=== PATIENT | male | born 1995 | race Caucasian/White ===

== ENCOUNTER 2018-10-18 08:00 | Emergency (ER) | payer OTHER, BC ==
[~2018-10-18] VITALS: Ht 177.8 cm; Wt 93.9 kg
[2018-10-18 08:06] VITALS: BP 100/54; Ht 177.8 cm; Wt 93.9 kg
== END 2018-10-18 08:36 | disposition home or self-care (01) ==
LOC: ED 08:00
DX: S39.011A Strain of muscle, fascia and tendon of abdomen, initial encounter (principal); X50.9XXA Other and unspecified overexertion or strenuous movements or postures, initial encounter; Y93.B9 Activity, other involving muscle strengthening exercises; Y92.89 Other specified places as the place of occurrence of the external cause; Y99.8 Other external cause status